=== PATIENT | male | born 1940 | race Caucasian/White ===

== ENCOUNTER → 2016-03-26 | Outpatient (CLI) | payer MEDICARE, BC ==
[~2016-03-26] MED LIST: ACYC400T PO; ASPI81TA2 PO; CHOL200027 PO; CLON1TAB3 PO; CYAN100031 PO; CYAN25008 PO; DONE5TAB7 PO; FLAX1CAP PO; GABA-586 PO; INSU100V8 SQ; LEVO50TA5 PO; LISI10TA2 PO; METF10002 PO; NAPR220C4 PO; SERT100T8 PO; SIMV40TA3 PO
[2016-03-26 09:28] LABS: ALBUMIN 3.5 g/dL (3.4-5.0); CALCIUM 8.9 mg/dL (8.5-10.1); CREATININE 1.3 mg/dL (0.7-1.3); GFR 53.8; POTASSIUM 4.9 mmol/L (3.5-5.1)
[2016-03-26 09:29] LABS: BASO % 1 % (0-3); EOS % 4 % (0-3); HEMATOCRIT 47.7 % (39.0-53.0); HEMOGLOBIN 15.9 g/dL (13.0-17.5); LYMPH # 1.4 x10^3/uL (1.0-4.8); LYMPH % 23 % (24-48); MEAN CORPUSCULAR HEMOGLOBIN 29 pg (25-35); MEAN CORPUSCULAR HGB CONC 33 g/dL (31-37); MEAN CORPUSCULAR VOLUME 87 fL (79-100); MONO % 8 % (0-9); NEUT % 64 % (31-73); PLATELET COUNT 146 x10^3/uL (140-400); RED BLOOD COUNT 5.48 x10^6/uL (4.30-5.70); RED CELL DISTRIBUTION WIDTH 14.7 % (11.5-14.5)
[2016-03-26 10:10] LABS: BILIRUBIN,URINE NEGATIVE (NEG); GLUCOSE,URINE NEGATIVE (NEG); NITRITE,URINE NEGATIVE (NEG); PH,URINE 5.5; PROTEIN,URINE NEGATIVE (NEG-TRACE); UROBILINOGEN,URINE 0.2 mg/dL (0.2 mg/dL)
[2016-03-26 10:56] LABS: BACTERIA,URINE 0 /HPF (0-FEW); RBC,URINE 0 /HPF (0-2); SQUAMOUS EPITHELIAL CELL,UR FEW /LPF; WBC,URINE OCC /HPF (0-4)
--- NOTE | 2016-03-26 12:34 | EKG ---
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
--- NOTE | 2016-03-26 12:59 | RAD ---
INDICATION: hx borderline hypertension-preop eval for joint replacement COMPARISON: None. FINDINGS: Single view of chest obtained. No focal airspace consolidation. Mediastinal contour is unremarkable. No gross osseous destructive lesion. IMPRESSION: No focal airspace consolidation or edema.
== END | disposition home or self-care (01) ==
LOC: EDUNIT# 08:00 → SURGPAT 12:26
PROVIDERS: ATTEND Orthopaedic Surgery Sports Medicine
DX: Z01.818 Encounter for other preprocedural examination (principal); M17.11 Unilateral primary osteoarthritis, right knee; Z96.651 Presence of right artificial knee joint
CPT/HCPCS: 36415; 71020; 80048; 81001; 82040; 83036; 85027; 85610; 85651; 85730; 87641; 93005

== ENCOUNTER 2016-04-09 06:09 | Inpatient (IN) | payer MEDICARE ==
[~2016-04-09] VITALS: Ht 180.3 cm; Wt 116.1 kg
[~2016-04-09 06:09] MED LIST changes: +CEFAZOLIN 2GM PREMIX 50 ML IV PRN; +HYDROCODONE/APAP 7.5/325MG TABLET. PO PRN; +MELOXICAM 7.5 MG TABLET PO PRN; +TRANEXAMIC ACID 1,000 MG in IV NS 50ML -- 1ST BAG INJ ONE
[2016-04-09] MEDS ORDERED: PROCHLORPERAZINE 10 MG/2 ML VIAL. IV PRN ×2 (07:00→07:30)
[2016-04-09] MEDS ORDERED: LIDOCAINE 1% 1 ML SYRINGE. ID PRN (07:00)
[2016-04-09] MEDS ORDERED: MORPHINE SULFATE 2 MG/ML DISP.SYRIN. IV PRN ×2 (07:00→07:30)
[2016-04-09] MEDS ORDERED: ONDANSETRON PF 4 MG/2 ML VIAL. IV PRN (07:00)
[2016-04-09] MEDS ORDERED: HYDROMORPHONE 2 MG/ML VIAL. IV PRN (07:00)
[2016-04-09] MEDS ORDERED: IV RINGERS,LACTATED 1000ML 1,000 ML IV SCH (07:00)
[2016-04-09] MEDS ORDERED: FENTANYL PF 100 MCG/2 ML VIAL. IV PRN ×4 (07:00→07:30)
[2016-04-09] MEDS ORDERED: LIDOCAINE 2% 100 MG/5 ML DISP.SYRIN. ONE (07:04)
[2016-04-09] MEDS ORDERED: ONDANSETRON PF 4 MG/2 ML VIAL. ONE (07:04)
[2016-04-09] MEDS ORDERED: DEXAMETHASONE SOD PHOS 20 MG/5 ML VIAL. ONE (07:04)
[2016-04-09] MEDS ORDERED: FAMOTIDINE 20 MG/2 ML VIAL ONE (07:04)
[2016-04-09] MEDS ORDERED: PROPOFOL 20 ML IV ONE ×2 (07:04→08:52)
[2016-04-09] MEDS ORDERED: ROCURONIUM 50 MG/5 ML VIAL. ONE (07:05)
[2016-04-09] MEDS ORDERED: FENTANYL PF 100 MCG/2 ML VIAL. ONE ×2 (07:05→08:28)
[2016-04-09 07:11] LABS: INR 1.1 (0.8-1.1); PROTHROMBIN TIME PATIENT 13.3 SEC (11.7-14.0)
[2016-04-09] MEDS ORDERED: IV DEXTROSE 5 %-0.45 % NACL 1,000 ML IV SCH (07:21)
--- NOTE | 2016-04-09 07:27 | PDOC ---
BRIEF OPERATIVE NOTE Date: Apr 09, 2016 Pre-Op Diagnosis R knee DJD Post-Op Diagnosis same Procedure Performed R TKA Surgeon Arie Banjo Repairer Liane Anesthesiologist [place]ap[place] Anesthesia Type: General Blood Loss 75mL Findings DJD Complications none TREASURE DOMINGO II, MD Apr 09, 2016 07:27
[2016-04-09] MEDS ORDERED: HYDROCODONE/APAP 10/325 TABLET. PO PRN (07:30)
[2016-04-09] MEDS ORDERED: 0.9 % SODIUM CHLORIDE 10 ML DISP.SYRIN. IV PRN (07:30)
[2016-04-09] MEDS ORDERED: ZOLPIDEM 5 MG TABLET. PO PRN (07:30)
[2016-04-09] MEDS ORDERED: MORPHINE SULFATE 10 MG/ML VIAL. IV PRN (07:30)
[2016-04-09] MEDS ORDERED: CALCIUM CARBONATE 500 MG TAB.CHEW PO PRN (07:30)
[2016-04-09] MEDS ORDERED: PROCHLORPERAZINE 5 MG TABLET. PO PRN (07:30)
[2016-04-09] MEDS ORDERED: OXYCODONE/APAP 5/325 TABLET. PO PRN (07:30)
[2016-04-09] MEDS ORDERED: MORPHINE SULFATE 4 MG/ML DISP.SYRIN. IV PRN ×2 (07:30)
[2016-04-09] MEDS ORDERED: METOCLOPRAMIDE HCL 10 MG/2 ML VIAL. IV PRN (07:30)
[2016-04-09] MEDS ORDERED: DEXTROSE 50% 25 GM / 50ML DISP.SYRIN. IV PRN ×2 (07:30)
[2016-04-09] MEDS ORDERED: ACETAMINOPHEN 325 MG TABLET. PO PRN (07:30)
[2016-04-09] MEDS ORDERED: TRAMADOL 50 MG TABLET. PO PRN ×2 (07:30)
[2016-04-09] MEDS ORDERED: DIPHENHYDRAMINE 50 MG/ML VIAL IV PRN (07:30)
[2016-04-09] MEDS ORDERED: EPHEDRINE PF IN SALINE 50 MG/5 ML DISP.SYRIN. IV ONE (07:46)
[2016-04-09] MEDS ORDERED: TOBRAMYCIN POWDER 1.2 GM VIAL. ONE (07:59)
[2016-04-09] MEDS ORDERED: INSULIN ASPART 300 UNITS/3 ML INSULN.PEN SQ SCH (08:00)
[2016-04-09] MEDS ORDERED: MORPHINE SULFATE 5 MG, KETOROLAC TROMETHAMINE 30 MG, ROPIVacaine 0.5% PF 60 ML, EPINEPH... INT ART ONE ×5 (08:00)
[2016-04-09] MEDS ORDERED: TRANEXAMIC ACID 1,000 MG in IV NS 50ML -- 2ND BAG INJ ONE (08:00)
[2016-04-09] MEDS ORDERED: VANCOMYCIN 1 GM VIAL. ONE (08:00)
[2016-04-09] MEDS: MULTIVITAMIN with MINERAL TABLET. PO SCH (09:00)
[2016-04-09] MEDS ORDERED: GLYCOPYRROLATE 1 MG/5 ML VIAL. ONE (09:05)
[2016-04-09] MEDS ORDERED: NEOSTIGMINE METHYLSULFATE 5 MG/5 ML SYRINGE. ONE (09:06)
[2016-04-09] MEDS ORDERED: DESFLURANE 61 TO 120 MINUTES IH ONE (09:08)
[2016-04-09] MEDS ORDERED: DESFLURANE > 120 MINUTES IH ONE (09:38)
--- NOTE | 2016-04-09 10:34 | RAD ---
Right knee, 2 views, 04/09/2016: History: Postop evaluation A total knee prosthesis is in place in satisfactory position. There is no evidence of a retained surgical instrument, needle or radiopaque sponge on these 2 views.
[2016-04-09 11:15] VITALS: BP 127/77
[2016-04-09] MEDS: LISINOPRIL 10 MG TABLET PO SCH (12:00)
[2016-04-09 12:12] VITALS: BP 131/81
[2016-04-09 12:45] VITALS: BP 132/84
[2016-04-09] MEDS: INSULIN ASPART 300 UNITS/3 ML INSULN.PEN SQ SCH ×2 (13:25→16:50)
[2016-04-09] MEDS: CEFAZOLIN 2GM PREMIX 50 ML IV SCH ×2 (13:32→20:58)
[2016-04-09] MEDS: IV RINGERS,LACTATED 1000ML 1,000 ML IV SCH ×2 (13:32→22:30)
[2016-04-09 13:45] VITALS: BP 109/63
[2016-04-09] MEDS ORDERED: ACYCLOVIR 200 MG CAPSULE PO PRN (14:00)
--- NOTE | 2016-04-09 14:10 | OP ---
DATE OF SURGERY: 04/09/2016 SURGEON: Raul Domingo MD CULVERT INSTALLER: Courtney Rob ANESTHESIA: General. PREOPERATIVE DIAGNOSIS: Advanced right knee degenerative joint disease. POSTOPERATIVE DIAGNOSIS: Advanced right knee degenerative joint disease. PROCEDURE PERFORMED: Right total knee arthroplasty. COMPONENTS INSERTED: 1. Crockett and Nephew Oxinium size 6 femoral component. 2. Size 5 tibial component. 3. A 9-mm thick polyethylene articular insert. 4. A 26-mm biconvex patella. TOURNIQUET TIME: 64 minutes. ESTIMATED BLOOD LOSS: 75 mL. FINDINGS: Advanced degenerative joint disease, most notable at the medial compartment. COMPLICATIONS: None. REASON FOR PROCEDURE: The patient is a very pleasant 75-year-old gentleman with severe and progressive medial-sided as well as anterior right knee pain that failed conservative therapy such as assistive devices, anti-inflammatories, and intra-articular injections. His pain progressed despite all of these measures, and we had discussion of risks, benefits, and alternatives of the above surgery, and he elected to proceed. DESCRIPTION OF PROCEDURE: The patient was greeted in the preoperative area by myself. Correct extremity was marked and verified. He was taken to the operative suite, and antibiotics were started en route. Once in the OR, he was transferred gently supine to the OR table and made successful induction of general anesthesia. We then secured him to the bed. All pressure points were padded. We then had a nonsterile tourniquet taped in place to his right thigh. We then proceeded to prep and drape lower extremity in usual sterile fashion including an Ioban sandwich. I then affixed the Neal leg bhatt. After this, the extremity was exsanguinated with an Esmarch and tourniquet insufflated to 300 mmHg. I then palpated, marked surface anatomy and made an anterior midline skin incision, dissected subcutaneous tissue with electrocautery and cauterized bleeders as they were encountered. I identified his extensor mechanism including quadriceps tendon, medial border of his patella, and patellar tendon and made my standard medial parapatellar arthrotomy. I then bluntly dissected the fat pad off the posterior aspect of the patellar tendon, which was protected with an Army-Owings retractor, and then I excised the fat pad. I released horns of the meniscus. I then flexed the knee up and excised the cruciate ligaments. I then pinned into place my Visionaire distal femoral cutting block and then made my distal femoral cut. I delivered the bony ends and cutting block and then reapplied the distal femoral 5-in-1 cutting block and made those cuts. The bony ends were then delivered with a curved osteotome. I then released the PCL and posterior horns of the menisci. I placed my Z retractors to protect the collaterals as well as pickle fork. I then used an extramedullary tibial cutting guide and pinned this into place and made my proximal tibial cut and delivered this bony remnants from the operative field with circumferential electrocautery. I then brought the knee out into extension and used my spacer block and drop misha, which confirmed good alignment. I then repositioned the retractors and the knee in flexion and pinned in place my tibial component referencing the medial third of the tibial tubercle. I then drilled and punched for my baseplate fins. After this, I then placed my femoral trial component and then reamed and punched for the KM component. After this, I then trialed my polyethylene sizes and felt the 9 gave the best range of motion, 0 degrees to 135 degrees. Knee was stable in extension and mid flexion. After this, I sized for my patellar component. The 29 was a little bit too big, so I downsized it to 26 and reamed for this. I then trialed my patella and had great patellar tracking. I was happy with the range of motion and stability. I then removed all trial components and thoroughly irrigated all bony surfaces. I then proceeded to cement in place, the tibial component followed by the femoral component. A trial articular insert was then in place with the leg in extension while the cement polymerized. It should be noted that the antibiotics were included in the cement. I then held my patellar button in place with cement and the clamp. I then took care to make sure I removed all cement. I then injected my periarticular mixture and into the erica-incisional and pericapsular soft tissues. After cement hardened, I tested range of motion and stability and was happy and then took out the trial polyethylene insert and irrigated the knee out again and placed my 9-mm thick polyethylene permanent insert. We then let the tourniquet down and cauterized a couple of bleeders, where the operative field was fairly dry and elected not to place a drain. I then closed the arthrotomy with simple interrupted #1 Vicryl with the exception [id number] proximally. I tested the arthrotomy flexion, and it was watertight closure. Inverted interrupted 2-0 in a multilayered fashion followed by running 4-0 Monocryl in a subcuticular fashion was used for skin. Prior to accomplishing wound closure, all counts were reported correct x 2. No complications. At the conclusion of surgery, the patient was awakened from anesthesia. After a sterile dressing was applied followed by cast padding and an Onofre wrap to his right lower extremity. He tolerated surgery well. Postop plan is to [facility] for [facility] and antibiotic prophylaxis. He will also receive IV pain medicine and begin his rehabilitation. RAUL DOMINGO MD DR: DIVINA/vianca JOB#: [id number] / [id number] KEVIN
[2016-04-09 14:45] VITALS: BP 104/70
[2016-04-09] MEDS ORDERED: WARFARIN 7.5 MG TABLET. PO ONE (16:00)
[2016-04-09] MEDS: SENNOSIDES/DOCUSATE 8.6/50MG TABLET. PO SCH (16:44)
[2016-04-09] MEDS: METFORMIN 1,000 MG TABLET PO SCH (16:44)
[2016-04-09] MEDS: FERROUS SULFATE 325 MG TABLET PO SCH (16:44)
[2016-04-09] MEDS: HYDROCODONE/APAP 7.5/325MG TABLET. PO PRN (16:45)
[2016-04-09] MEDS: SIMVASTATIN 40 MG TABLET. PO SCH (21:04)
[2016-04-09] MEDS: DONEPEZIL HCL 5 MG TABLET. PO SCH (21:04)
[2016-04-09] MEDS: GABAPENTIN 300 MG CAPSULE. PO SCH (21:04)
[2016-04-09] MEDS: CELECOXIB 200 MG CAPSULE PO SCH (21:04)
[2016-04-09] MEDS: INSULIN DETEMIR 300 UNITS/3 ML INSULN.PEN. SQ SCH (21:13)
[2016-04-09 23:00] VITALS: BP 105/63
[2016-04-10] MEDS: CEFAZOLIN 2GM PREMIX 50 ML IV SCH (02:00)
[2016-04-10 03:30] VITALS: BP 107/63
[2016-04-10 05:08] LABS: INR 1.2 (0.8-1.1); PROTHROMBIN TIME PATIENT 14.6 SEC (11.7-14.0)
[2016-04-10] MEDS ORDERED: MAGNESIUM HYDROXIDE 2,400 MG/30 ML ORAL.SUSP. PO PRN (06:00)
[2016-04-10 07:25] VITALS: BP 124/62
[2016-04-10] MEDS: LEVOTHYROXINE 50 MCG TABLET PO SCH (07:31)
[2016-04-10] MEDS: CELECOXIB 200 MG CAPSULE PO SCH ×2 (08:08→20:02)
[2016-04-10] MEDS: FERROUS SULFATE 325 MG TABLET PO SCH ×2 (08:08→16:57)
[2016-04-10] MEDS: SENNOSIDES/DOCUSATE 8.6/50MG TABLET. PO SCH (08:08)
[2016-04-10] MEDS: MULTIVITAMIN with MINERAL TABLET. PO SCH (08:08)
[2016-04-10] MEDS: METFORMIN 1,000 MG TABLET PO SCH ×2 (08:08→16:57)
[2016-04-10] MEDS: HYDROCODONE/APAP 7.5/325MG TABLET. PO PRN (08:11)
[2016-04-10] MEDS: INSULIN ASPART 300 UNITS/3 ML INSULN.PEN SQ SCH ×3 (08:14→17:02)
--- NOTE | 2016-04-10 08:24 | PDOC ---
ORTHO PROGRESS NOTES Subjective Pain tolerable, no CP, SOB. Vitals Vital Signs Date Time Temp Pulse Resp B/P Pulse Ox O2 Delivery O2 Flow Rate FiO2 04/10/16 08:11 Room Air 04/10/16 07:25 98.0 70 16 124/62 94 98.0 04/10/16 03:30 2.0 Labs Laboratory Tests Test 04/09/16 06:15 04/09/16 06:45 04/09/16 10:04 04/09/16 13:23 Prothrombin Time 13.3SEC (11.7-14.0) Prothromb Time International Ratio 1.1 (0.8-1.1) Activated Partial Thromboplast Time 26SEC (24-38) Glucose (Fingerstick) 148mg/dL (70-99) 233mg/dL (70-99) 270mg/dL (70-99) Test 04/09/16 16:24 04/09/16 21:09 04/10/16 04:50 04/10/16 07:13 Glucose (Fingerstick) 225mg/dL (70-99) 207mg/dL (70-99) 157mg/dL (70-99) Prothrombin Time 14.6SEC (11.7-14.0) Prothromb Time International Ratio 1.2 (0.8-1.1) Laboratory Tests Test 04/09/16 10:04 04/09/16 13:23 04/09/16 16:24 04/09/16 21:09 Glucose (Fingerstick) 233mg/dL (70-99) 270mg/dL (70-99) 225mg/dL (70-99) 207mg/dL (70-99) Test 04/10/16 04:50 04/10/16 07:13 Prothrombin Time 14.6SEC (11.7-14.0) Prothromb Time International Ratio 1.2 (0.8-1.1) Glucose (Fingerstick) 157mg/dL (70-99) Notes A and A in chair dressing intact SITLT RLE, wiggles toes, toes warm Assessment and Plan PT/OT TREASURE DOMINGO II, MD Apr 10, 2016 08:24
[2016-04-10] MEDS: IV RINGERS,LACTATED 1000ML 1,000 ML IV SCH ×2 (08:30→18:30)
[2016-04-10 10:27] LABS: HEMATOCRIT 40.1 % (39.0-53.0); HEMOGLOBIN 13.3 g/dL (13.0-17.5)
[2016-04-10 11:29] VITALS: BP 125/73
[2016-04-10] MEDS: SERTRALINE 50 MG TABLET. PO SCH ×2 (11:48→20:01)
[2016-04-10] MEDS: OXYCODONE/APAP 7.5/325 TABLET. PO PRN ×3 (11:49→20:01)
[2016-04-10] MEDS: LISINOPRIL 10 MG TABLET PO SCH (12:52)
[2016-04-10] MEDS ORDERED: BISACODYL 10 MG SUPP.RECT PR PRN (16:00)
[2016-04-10 18:06] VITALS: BP 145/77
[2016-04-10] MEDS: GABAPENTIN 300 MG CAPSULE. PO SCH (20:01)
[2016-04-10] MEDS: CLONAZEPAM 1 MG TABLET PO SCH (20:02)
[2016-04-10] MEDS: DONEPEZIL HCL 5 MG TABLET. PO SCH (20:02)
[2016-04-10] MEDS: SIMVASTATIN 40 MG TABLET. PO SCH (20:02)
[2016-04-10] MEDS: INSULIN DETEMIR 300 UNITS/3 ML INSULN.PEN. SQ SCH (21:28)
[2016-04-11] MEDS: OXYCODONE/APAP 7.5/325 TABLET. PO PRN ×6 (00:26→19:17)
[2016-04-11 05:53] LABS: INR 1.3 (0.8-1.1); PROTHROMBIN TIME PATIENT 15.1 SEC (11.7-14.0)
[2016-04-11 06:13] VITALS: BP 122/76
[2016-04-11] MEDS: LEVOTHYROXINE 50 MCG TABLET PO SCH (06:22)
[2016-04-11 06:52] LABS: HEMATOCRIT 45.1 % (39.0-53.0); HEMOGLOBIN 14.8 g/dL (13.0-17.5)
[2016-04-11] MEDS: MULTIVITAMIN with MINERAL TABLET. PO SCH (08:35)
[2016-04-11] MEDS: CELECOXIB 200 MG CAPSULE PO SCH ×2 (08:35→20:40)
[2016-04-11] MEDS: FERROUS SULFATE 325 MG TABLET PO SCH ×2 (08:35→16:17)
[2016-04-11] MEDS: SENNOSIDES/DOCUSATE 8.6/50MG TABLET. PO SCH (08:35)
[2016-04-11] MEDS: LISINOPRIL 10 MG TABLET PO SCH (08:36)
[2016-04-11] MEDS: METFORMIN 1,000 MG TABLET PO SCH ×2 (08:36→16:18)
[2016-04-11] MEDS: SERTRALINE 50 MG TABLET. PO SCH ×2 (08:36→20:40)
[2016-04-11] MEDS: INSULIN ASPART 300 UNITS/3 ML INSULN.PEN SQ SCH ×3 (08:41→16:23)
--- NOTE | 2016-04-11 10:52 | PDOC ---
EDUARDOKAYYVAN J TRACER LATHE SET UP OPERATOR 04/11/16 1052: ORTHO PROGRESS NOTES Subjective Patient complains of pain, but pain moderately controlled with pain medication. No CP/SOB. progressing with therapy. no concerns presently Post-op Day: 2 (Right TKA) Vitals Vital Signs Date Time Temp Pulse Resp B/P Pulse Ox O2 Delivery O2 Flow Rate FiO2 04/11/16 09:41 18 93 Room Air 04/11/16 08:36 76 122/76 04/11/16 06:13 98.1 98.1 Labs Laboratory Tests Test 04/09/16 13:23 04/09/16 16:24 04/09/16 21:09 04/10/16 04:50 Glucose (Fingerstick) 270mg/dL (70-99) 225mg/dL (70-99) 207mg/dL (70-99) Hemoglobin 13.3g/dL (13.0-17.5) Hematocrit 40.1% (39.0-53.0) Mean Corpuscular Hemoglobin Concent 33g/dL (31-37) Prothrombin Time 14.6SEC (11.7-14.0) Prothromb Time International Ratio 1.2 (0.8-1.1) Test 04/10/16 07:13 04/10/16 11:35 04/10/16 16:53 04/10/16 20:32 Glucose (Fingerstick) 157mg/dL (70-99) 134mg/dL (70-99) 167mg/dL (70-99) 215mg/dL (70-99) Test 04/11/16 04:24 04/11/16 06:51 Hemoglobin 14.8g/dL (13.0-17.5) Hematocrit 45.1% (39.0-53.0) Mean Corpuscular Hemoglobin Concent 33g/dL (31-37) Prothrombin Time 15.1SEC (11.7-14.0) Prothromb Time International Ratio 1.3 (0.8-1.1) Glucose (Fingerstick) 172mg/dL (70-99) Laboratory Tests Test 04/10/16 11:35 04/10/16 16:53 04/10/16 20:32 04/11/16 04:24 Glucose (Fingerstick) 134mg/dL (70-99) 167mg/dL (70-99) 215mg/dL (70-99) Hemoglobin 14.8g/dL (13.0-17.5) Hematocrit 45.1% (39.0-53.0) Mean Corpuscular Hemoglobin Concent 33g/dL (31-37) Prothrombin Time 15.1SEC (11.7-14.0) Prothromb Time International Ratio 1.3 (0.8-1.1) Test 04/11/16 06:51 Glucose (Fingerstick) 172mg/dL (70-99) Notes Patient is awake and alert. Breathing unlabored, no acute distress. Incision covered with dressing, dressing is intact. Moderate edema. Neurovascular intact right lower extremity. Problems: (1) Right knee DJD Assessment and Plan Continue PT/OT weightbearing as tolerated. Anticoagulation per pharmacy Anticipate discharge tomorrow Pain controlled TREASURE DOMINGO II, MD 04/11/16 1256: Problem Qualifiers (1) Right knee DJD: Osteoarthritis type: primary Qualified Code: M17.11 - Unilateral primary osteoarthritis, right knee YVAN JAVIER APRN Apr 11, 2016 10:52 TREASURE DOMINGO II, MD Apr 11, 2016 12:56
--- NOTE | 2016-04-11 14:12 | PATHOLOGY ---
PATHOLOGY REPORT * * * * * * * * FINAL DIAGNOSIS: Segments of bone, right total knee arthroplasty: - Advanced degenerative arthritis. (JPM:csd; d/t: 04/11/2016) REPORT ELECTRONICALLY SIGNED BY: Bernard Wood M.D. DATE/TIME: 04/11/2016 14:11 * * * * * * * * GROSS PATHOLOGY: Received in formalin labeled "Luis Daniel Nguyen, right knee tissue," are multiple segments of bone, including tibial plateau, measuring 9.7 x 8.2 x 2.5 cm in aggregate dimensions with no grossly appreciable soft tissue; meniscus is not present. The specimen shows focal eburnation of the articular surfaces. Auto Crane Driver sections of bone and soft tissue are submitted in cassette A1, following decalcification. (CAA; 04/10/2016) INITIAL CPT CODE(S): A; 03944, 45128 Professional services [place] [facility] [place] [address] Technical services performed by [facility] at [address] [place] [address]. SPECIMEN(S) RECEIVED: A.Right knee tissue CLINICAL HISTORY: Right knee OA PATIENT: LUIS DANIEL NGUYEN /AGE: 5 1940 (Age: 75) PATIENT #: [id number] ALT CASE #: SPECIMEN COLLECTION DATE: 04/09/2016 SPECIMEN RECEIVED DATE: 04/09/2016 [facility] - [address] [place] [address] - PHONE: [phone] * * * END OF REPORT * * *
[2016-04-11] MEDS ORDERED: WARFARIN 7.5 MG TABLET. PO ONE (16:00)
[2016-04-11] MEDS ORDERED: WARFARIN 5 MG TABLET. PO ONE (16:00)
[2016-04-11] MEDS: DONEPEZIL HCL 5 MG TABLET. PO SCH (20:40)
[2016-04-11] MEDS: GABAPENTIN 300 MG CAPSULE. PO SCH (20:40)
[2016-04-11] MEDS: SIMVASTATIN 40 MG TABLET. PO SCH (20:40)
[2016-04-11] MEDS: CLONAZEPAM 1 MG TABLET PO SCH (20:40)
[2016-04-11] MEDS: INSULIN DETEMIR 300 UNITS/3 ML INSULN.PEN. SQ SCH (20:46)
[2016-04-12] MEDS: OXYCODONE/APAP 7.5/325 TABLET. PO PRN ×4 (01:47→15:14)
[2016-04-12 05:13] LABS: HEMATOCRIT 38.1 % (39.0-53.0)
[2016-04-12 05:22] LABS: INR 1.3 (0.8-1.1); PROTHROMBIN TIME PATIENT 15.1 SEC (11.7-14.0)
[2016-04-12 06:16] VITALS: BP 113/71
--- NOTE | 2016-04-12 07:54 | PDOC ---
ORTHO PROGRESS NOTES Subjective R knee pain doing ok. c/o worse productive cough, has had some breathing issues for a couple months, but worse after surgery Vitals Vital Signs Date Time Temp Pulse Resp B/P Pulse Ox O2 Delivery O2 Flow Rate FiO2 04/12/16 06:16 97.4 67 20 113/71 91 Room Air 97.4 Labs Laboratory Tests Test 04/10/16 11:35 04/10/16 16:53 04/10/16 20:32 04/11/16 04:24 Glucose (Fingerstick) 134mg/dL (70-99) 167mg/dL (70-99) 215mg/dL (70-99) Hemoglobin 14.8g/dL (13.0-17.5) Hematocrit 45.1% (39.0-53.0) Mean Corpuscular Hemoglobin Concent 33g/dL (31-37) Prothrombin Time 15.1SEC (11.7-14.0) Prothromb Time International Ratio 1.3 (0.8-1.1) Test 04/11/16 06:51 04/11/16 11:22 04/11/16 16:16 04/11/16 20:38 Glucose (Fingerstick) 172mg/dL (70-99) 169mg/dL (70-99) 160mg/dL (70-99) 167mg/dL (70-99) Test 04/12/16 05:00 04/12/16 06:56 Hemoglobin 13.0g/dL (13.0-17.5) Hematocrit 38.1% (39.0-53.0) Mean Corpuscular Hemoglobin Concent 34g/dL (31-37) Prothrombin Time 15.1SEC (11.7-14.0) Prothromb Time International Ratio 1.3 (0.8-1.1) Glucose (Fingerstick) 176mg/dL (70-99) Laboratory Tests Test 04/11/16 11:22 04/11/16 16:16 04/11/16 20:38 04/12/16 05:00 Glucose (Fingerstick) 169mg/dL (70-99) 160mg/dL (70-99) 167mg/dL (70-99) Hemoglobin 13.0g/dL (13.0-17.5) Hematocrit 38.1% (39.0-53.0) Mean Corpuscular Hemoglobin Concent 34g/dL (31-37) Prothrombin Time 15.1SEC (11.7-14.0) Prothromb Time International Ratio 1.3 (0.8-1.1) Test 04/12/16 06:56 Glucose (Fingerstick) 176mg/dL (70-99) Notes A and A RLE: nickel sized blister over medial soft tissues small amount drainage from inferior incision remains NVI Assessment and Plan gentle compressive dressing to RLE will ask Hospitalist service to eval patient possibly home later today vs tomorrow CXR TREASURE DOMINGO II, MD Apr 12, 2016 07:54
[2016-04-12] MEDS: METFORMIN 1,000 MG TABLET PO SCH (08:00)
[2016-04-12] MEDS: MULTIVITAMIN with MINERAL TABLET. PO SCH (08:05)
[2016-04-12] MEDS: FERROUS SULFATE 325 MG TABLET PO SCH (08:05)
[2016-04-12] MEDS: SENNOSIDES/DOCUSATE 8.6/50MG TABLET. PO SCH (08:05)
[2016-04-12] MEDS: SERTRALINE 50 MG TABLET. PO SCH (08:05)
[2016-04-12] MEDS: LEVOTHYROXINE 50 MCG TABLET PO SCH (08:05)
[2016-04-12] MEDS: CELECOXIB 200 MG CAPSULE PO SCH (08:06)
[2016-04-12] MEDS: LISINOPRIL 10 MG TABLET PO SCH (08:07)
[2016-04-12] MEDS: INSULIN ASPART 300 UNITS/3 ML INSULN.PEN SQ SCH ×2 (08:13→11:36)
--- NOTE | 2016-04-12 08:44 | RAD ---
Exam performed: 2 views of the chest. Indication: productive cough Date of Service:04/12/2016 9:54 AM . Comparison : 03/26/16. Findings: PA and lateral radiographs of the chest reveal a normal cardiomediastinal contour. The lungs are clear. No pleural fluid is seen. The visualized osseous structures are unremarkable. Impression: Radiographically normal chest.
--- NOTE | 2016-04-12 13:07 | CONS ---
DATE OF CONSULTATION: 04/12/2016 CHIEF COMPLAINT: Postop left knee, request for medical evaluation and treatment of comorbidities. HISTORY OF PRESENT ILLNESS: The patient is a pleasant elderly male who underwent a left knee replacement yesterday. We have been requested for postop medical evaluation and treatment of comorbidities. PAST MEDICAL HISTORY: Anxiety, anemia, degenerative joint disease, neuropathy, diabetes, hypertension, hyperlipidemia and depression. ALLERGIES: None. FAMILY HISTORY: Diabetes. SOCIAL HISTORY: Does not drink, smoke or take drugs. He is retired. MEDICATIONS: Reviewed, please refer to the MRAD. He is on aspirin, vitamin D, B12, donepezil, flaxseed, gabapentin, insulin, Synthroid, metformin, lisinopril, ____, sertraline and simvastatin. REVIEW OF SYSTEMS: GENERAL: No history of weight change, weakness or fevers. SKIN: No bruising, hair changes or rashes. EYES: No blurred, double or loss of vision. NOSE AND THROAT: No history of nosebleeds, hoarseness or sore throat. HEART: No history of palpitations, chest pain or shortness of breath on exertion. LUNGS: He complains of cough. GASTROINTESTINAL: Denies changes in appetite, nausea, vomiting, diarrhea or constipation. GENITOURINARY: No history of frequency, urgency, hesitancy or nocturia. NEUROLOGIC: Denies history of numbness, tingling, tremor or weakness. PSYCHIATRIC: No history of panic, anxiety or depression. ENDOCRINE: No history of heat or cold intolerance, polyuria or polydipsia. EXTREMITIES: Denies muscle weakness, joint pain, pain on walking or stiffness. MUSCULOSKELETAL: He ____ of knee pain. PHYSICAL EXAMINATION: VITAL SIGNS: Temperature afebrile, pulse 97, respirations 18, blood pressure 113/71. GENERAL: He is alert, cooperative, a little anxious. HEART: Normal S1, S2. LUNGS: Clear. ABDOMEN: Soft, positive bowel sounds. EXTREMITIES: The left knee has clean bandaging. ENDOCRINE: No thyromegaly. LYMPHATICS: No cervical nodes. HEMATOPOIETIC: No bruising. LABORATORY DATA: Hemoglobin today is 13. Electrolytes pending. INR 1.3. ASSESSMENT AND PLAN: Postop left knee replacement in an elderly male with the above noted comorbidities. We will continue home medicines. We will recheck his labs tomorrow, wound care, PT, OT, probable [facility] unit transfer in a couple of days. Thank you very much for allowing us to participate in the care of this nice gentleman. BRADLEY MATUTE DO DR: VANESSA/vianca JOB#: [id number] / [id number] TREASURE Guerin MD
[2016-04-12] MEDS ORDERED: WARFARIN 6 MG TABLET. PO ONE (14:00)
[2016-04-12] MEDS ORDERED: OXYC-244 PO (14:47)
[2016-04-12 14:48] VITALS: BP 129/68
[2016-04-12] MEDS ORDERED: PROAIR HFA8.5 GM INH (14:52)
== END 2016-04-12 15:40 | disposition home or self-care (01) | DRG 470 ==
LOC: OPSVCIP 06:09 → EDUNIT# 07:30 → 4 SOUTHEST 11:15
PROVIDERS: ADMIT Orthopaedic Surgery Sports Medicine; ATTEND Orthopaedic Surgery Sports Medicine
PROC: 0SRC0J9 Replacement of Right Knee Joint with Synthetic Substitute, Cemented, Open Approach (ICD-10-PCS; principal; 2016-04-09 07:30)
DX: M17.11 Unilateral primary osteoarthritis, right knee (principal); I10 Essential (primary) hypertension; E11.40 Type 2 diabetes mellitus with diabetic neuropathy, unspecified; E78.5 Hyperlipidemia, unspecified; Z96.652 Presence of left artificial knee joint; Z83.3 Family history of diabetes mellitus; Z79.4 Long term (current) use of insulin
CPT/HCPCS: 36415; 71020; 73560; 82947; 85014; 85018; 85610; 85730; 86850; 86900; 86901; 88305; 88311; J0171; J0690; J1100; J1815; J1885; J2270; J2405; J2704; J2710; J2795; J3010; J3260; J3370; J3490; J7030; J7120; S0028; 97110; 97116; 97150; 97530; 97535; C1769

== ENCOUNTER 2016-04-23 07:23 | Inpatient (IN) | payer MEDICARE, BC ==
[~2016-04-23] VITALS: Ht 180.3 cm; Wt 113.9 kg
[2016-04-23] VITALS (11 sets, daily range): BP systolic 122–157; BP diastolic 60–87
[~2016-04-23 07:23] MED LIST changes: +ACETAMINOPHEN 500 MG TABLET PO PRN; -CEFAZOLIN 2GM PREMIX 50 ML IV PRN; +FENTANYL PF 100 MCG/2 ML VIAL. IV PRN; +HYDROMORPHONE 2 MG/ML VIAL. IV PRN; +IV RINGERS,LACTATED 1000ML 1,000 ML IV SCH; +LIDOCAINE 1% 1 ML SYRINGE. ID PRN; -MELOXICAM 7.5 MG TABLET PO PRN; +MORPHINE SULFATE 2 MG/ML DISP.SYRIN. IV PRN; +MORPHINE SULFATE 5 MG, KETOROLAC TROMETHAMINE 30 MG, ROPIVacaine 0.5% PF 60 ML, EPINEPH... INT ART ONE; +ONDANSETRON PF 4 MG/2 ML VIAL. IV PRN; +OXYC-244 PO; +PROAIR HFA8.5 GM INH; +PROCHLORPERAZINE 10 MG/2 ML VIAL. IV PRN; +WARF6TAB PO
[2016-04-23] MEDS ORDERED: HYDROCODONE/APAP 10/325 TABLET. PO PRN (07:30)
[2016-04-23] MEDS ORDERED: HYDROCODONE/APAP 7.5/325MG TABLET. PO PRN (07:30)
[2016-04-23] MEDS ORDERED: DIPHENHYDRAMINE 50 MG/ML VIAL IV PRN (07:30)
[2016-04-23] MEDS ORDERED: CALCIUM CARBONATE 500 MG TAB.CHEW PO PRN (07:30)
[2016-04-23] MEDS ORDERED: ZOLPIDEM 5 MG TABLET. PO PRN (07:30)
[2016-04-23] MEDS ORDERED: TRAMADOL 50 MG TABLET. PO PRN ×2 (07:30)
[2016-04-23] MEDS ORDERED: MORPHINE SULFATE 2 MG/ML DISP.SYRIN. IV PRN (07:30)
[2016-04-23] MEDS ORDERED: MORPHINE SULFATE 10 MG/ML VIAL. IV PRN (07:30)
[2016-04-23] MEDS ORDERED: 0.9 % SODIUM CHLORIDE 10 ML DISP.SYRIN. IV PRN (07:30)
[2016-04-23] MEDS ORDERED: FENTANYL PF 100 MCG/2 ML VIAL. IV PRN ×2 (07:30)
[2016-04-23] MEDS: IV DEXTROSE 5 %-0.45 % NACL 1,000 ML IV SCH ×2 (07:30→17:30)
[2016-04-23] MEDS ORDERED: PROCHLORPERAZINE 5 MG TABLET. PO PRN (07:30)
[2016-04-23] MEDS ORDERED: PROCHLORPERAZINE 10 MG/2 ML VIAL. IV PRN (07:30)
[2016-04-23] MEDS ORDERED: MORPHINE SULFATE 4 MG/ML DISP.SYRIN. IV PRN ×2 (07:30)
[2016-04-23] MEDS ORDERED: ACETAMINOPHEN 325 MG TABLET. PO PRN (07:30)
[2016-04-23] MEDS ORDERED: OXYCODONE/APAP 5/325 TABLET. PO PRN (07:30)
[2016-04-23] MEDS ORDERED: DEXTROSE 50% 25 GM / 50ML DISP.SYRIN. IV PRN ×2 (07:30→13:45)
[2016-04-23] MEDS ORDERED: VANCOMYCIN 1 GM in IV NORMAL SALINE 250ML 250 ML IV ONE ×2 (07:45→21:00)
[2016-04-23] MEDS ORDERED: TRANEXAMIC ACID 1,000 MG in IV NS 50ML -- 2ND BAG INJ ONE (08:00)
[2016-04-23] MEDS ORDERED: ROCURONIUM 50 MG/5 ML VIAL. ONE ×2 (08:01)
[2016-04-23] MEDS ORDERED: FAMOTIDINE 20 MG/2 ML VIAL ONE (08:02)
[2016-04-23] MEDS ORDERED: PROPOFOL 20 ML IV ONE ×2 (08:02→10:56)
[2016-04-23] MEDS ORDERED: ONDANSETRON PF 4 MG/2 ML VIAL. ONE (08:02)
[2016-04-23] MEDS ORDERED: LIDOCAINE 2% 100 MG/5 ML DISP.SYRIN. ONE (08:02)
[2016-04-23] MEDS: IV RINGERS,LACTATED 1000ML 1,000 ML IV SCH ×2 (08:17→21:51)
--- NOTE | 2016-04-23 08:20 | PDOC ---
BRIEF OPERATIVE NOTE Date: Apr 23, 2016 Pre-Op Diagnosis R TKA drainage Post-Op Diagnosis same Procedure Performed I and D, poly exchange, R TKA Surgeon Arie Anesthesiologist Teo Anesthesia Type: General Blood Loss 50mL Specimens Obtained knee aspirate, superficial and deep cultures Findings subq fluid collection, arthrotomy open proximal to patella; no gross purulence Complications none TREASURE DOMINGO II, MD Apr 23, 2016 08:20
[2016-04-23 08:35] LABS: BASO % 1 % (0-3); EOS % 3 % (0-3); HEMOGLOBIN 14.4 g/dL (13.0-17.5); LYMPH # 1.6 x10^3/uL (1.0-4.8); LYMPH % 20 % (24-48); MEAN CORPUSCULAR HEMOGLOBIN 29 pg (25-35); MEAN CORPUSCULAR HGB CONC 33 g/dL (31-37); MEAN CORPUSCULAR VOLUME 90 fL (79-100); MONO % 7 % (0-9); NEUT % 70 % (31-73); PLATELET COUNT 251 x10^3/uL (140-400); RED BLOOD COUNT 4.92 x10^6/uL (4.30-5.70); RED CELL DISTRIBUTION WIDTH 14.9 % (11.5-14.5); WHITE BLOOD COUNT 8.2 x10^3/uL (4.0-11.0)
[2016-04-23] MEDS ORDERED: VANCOMYCIN 1 GM VIAL. ONE (09:08)
[2016-04-23 09:23] LABS: INR 1.1 (0.8-1.1); PROTHROMBIN TIME PATIENT 13.5 SEC (11.7-14.0)
[2016-04-23] MEDS ORDERED: GLYCOPYRROLATE 1 MG/5 ML VIAL. ONE (09:41)
[2016-04-23] MEDS ORDERED: NEOSTIGMINE METHYLSULFATE 5 MG/5 ML SYRINGE. ONE (09:41)
[2016-04-23] MEDS ORDERED: SEVOFLURANE 61 TO 120 MINUTES. IH ONE ×2 (09:55→11:03)
[2016-04-23] MEDS ORDERED: SEVOFLURANE > 120 MINUTES. IH ONE (11:03)
[2016-04-23] MEDS ORDERED: INSULIN ASPART 100 UNIT/ML 10ML VIAL. SQ PRN (11:30)
[2016-04-23] MEDS: FENTANYL PF 100 MCG/2 ML VIAL. IV PRN ×4 (11:41→12:05)
[2016-04-23] MEDS ORDERED: CEFAZOLIN 2GM PREMIX 50 ML IV PRN (12:15)
--- NOTE | 2016-04-23 12:15 | OP ---
DATE OF SURGERY: 04/23/2016 SURGEON: Raul Domingo MD CRIMINAL RESEARCHER: Yaya. ANESTHESIA: General. PREOPERATIVE DIAGNOSIS: Right total knee arthroplasty drainage. POSTOPERATIVE DIAGNOSIS: Right total knee arthroplasty drainage. PROCEDURES PERFORMED: 1. Irrigation and debridement of right total knee arthroplasty down deep. 2. Polyethylene exchange. COMPONENTS INSERTED: A Crockett and Nephew size 9 for 5-6 tibial tray polyethylene articular insert. SPECIMENS SENT: 1. Superficial tissue for culture. 2. Deep tissue for culture. 3. Knee aspiration for culture and cell count. TOURNIQUET TIME: 60 minutes. ESTIMATED BLOOD LOSS: 50 mL. REASON FOR PROCEDURE: The patient is a very pleasant 75-year-old gentleman who underwent a total knee arthroplasty with me approximately 2 weeks ago. He had shown into my office with complaints of persistent drainage, small amount of serosanguineous drainage, from the inferior portion of his incision. Because of this, we had a discussion of risks, benefits, alternatives to the above surgery with him and he elected to proceed. DESCRIPTION OF PROCEDURE: The patient was greeted in the preoperative area by myself, correct extremity was marked and verified. He was taken to the operative suite and antibiotics were held until after all specimens were obtained intraoperatively. Once in the OR, he was transferred gently supine to the OR table and secured to the bed. All pressure points were padded. He had a successful induction of general anesthesia. We then placed our attachment for Neal leg bhatt at the foot of the bed and a large padded bump at his hip. A nonsterile tourniquet was taped in place to his right thigh. We then proceeded to prep and drape right lower extremity in our usual sterile fashion including an Ioban sandwich. I then used an 18-gauge needle and a 60 mL syringe to perform an aspiration, which yielded approximately 30 mL of a bloody fluid. This was sent off for cell count and culture. I then opened his incision through his prior incision with the scalpel. I used a hemostat to remove the suture debris. I then explored the subcutaneous tissue and noted a small amount of drainage from the inferior portion of the wound; more importantly he had approximately a 5 cm defect at his arthrotomy proximal to his patella. This communicated with the knee down deep. Therefore, I opened up his arthrotomy with a scalpel again and I removed all the suture debris. Prior to opening up his arthrotomy, I did use combination of curette, sharp excision, and a rongeur to debride the subcutaneous tissue. I then irrigated this out with approximately 1000 mL of sterile normal saline. Then, I continued on and opened up his arthrotomy and I used a curette and rongeur as well as a sharp excision to debride the suprapatellar pouch, medial and lateral gutters. After this, I took some of the tissue over the anterior aspect of his knee hardware and sent this for deep culture. The antibiotics were then started IV. After this, I removed the polyethylene articular insert with a blunt Hohmann with the knee in flexion. I then extended the knee and an financial legal assistant held longitudinal traction while I carried out the debridement of the posterior capsule. I then irrigated out his knee with the remainder of the 3000 mL sterile fluid bag. After this, I reinserted a 9 mm articular insert, as I was happy with his range of motion and stability with this in. I then proceeded to close the arthrotomy with a simple interrupted #1 PDS. Inverted interrupted 2-0 PDS was used for subcutaneous tissue and running 4-0 Monocryl was used for the skin. The leg was then cleansed and dried and RAMAN wound VAC was applied. The patient tolerated surgery well. Prior to completion of wound closure, all counts were reported correct x 2. No complications. At the conclusion of surgery, he was transferred gently supine to the hospital bed and taken to PACU in stable and extubated condition. Postop plan is to admit him to the joint center where he will begin rehabilitation. We will maintain him on Coumadin starting tonight. We will follow along with the wound cultures and if any of these tests are consistent with possible infection, we will ask Infectious Disease to see him. RAUL DOMINGO MD DR: DIVINA/vianca JOB#: [id number] / [id number] KEVIN
--- NOTE | 2016-04-23 12:24 | RAD ---
Indication: Post knee replacement. Technique: 2 views of the right knee are submitted for review. Comparison is from April 09, 2016. Findings: Right knee arthroplasty appears similarly positioned to prior study. There is no perihardware lucency. There is gas in the joint space and soft tissues and there is soft tissue swelling. On lateral view, there is questionable avulsion of a portion of the proximal posterior tibia, could also be related to slight obliquity of the lateral view compared to prior study and overlap of the proximal fibula. Attention to this area on follow-up exams would be of benefit. Impression: Right knee arthroplasty noted. Questionable avulsion fracture of the proximal tibia posteriorly.
[2016-04-23 13:21] LABS: BF CLARITY CLOUDY; BF COLOR RED
[2016-04-23] MEDS: SENNOSIDES/DOCUSATE 8.6/50MG TABLET. PO SCH (13:31)
[2016-04-23] MEDS: MULTIVITAMIN with MINERAL TABLET. PO SCH (13:31)
[2016-04-23] MEDS: OXYCODONE/APAP 7.5/325 TABLET. PO PRN ×3 (14:53→21:26)
[2016-04-23] MEDS ORDERED: WARFARIN 7.5 MG TABLET. PO ONE (16:00)
[2016-04-23] MEDS: FERROUS SULFATE 325 MG TABLET PO SCH (17:53)
[2016-04-23] MEDS: INSULIN ASPART 300 UNITS/3 ML INSULN.PEN SQ SCH (17:57)
[2016-04-23] MEDS: CELECOXIB 200 MG CAPSULE PO SCH (21:26)
[2016-04-23] MEDS ORDERED: INSULIN ASPART 300 UNITS/3 ML INSULN.PEN SQ ONE (22:00)
[2016-04-24] MEDS: OXYCODONE/APAP 7.5/325 TABLET. PO PRN ×2 (02:22→06:21)
[2016-04-24] MEDS: IV DEXTROSE 5 %-0.45 % NACL 1,000 ML IV SCH ×3 (03:30→23:30)
[2016-04-24 03:41] VITALS: BP 128/77
[2016-04-24] MEDS ORDERED: MAGNESIUM HYDROXIDE 2,400 MG/30 ML ORAL.SUSP. PO PRN (06:00)
[2016-04-24 06:50] LABS: HEMATOCRIT 40.6 % (39.0-53.0); HEMOGLOBIN 13.6 g/dL (13.0-17.5)
[2016-04-24 07:00] VITALS: BP 140/81
[2016-04-24 07:03] LABS: INR 1.1 (0.8-1.1); PROTHROMBIN TIME PATIENT 13.7 SEC (11.7-14.0)
[2016-04-24] MEDS: INSULIN ASPART 300 UNITS/3 ML INSULN.PEN SQ SCH ×4 (08:00→17:01)
[2016-04-24] MEDS ORDERED: DEXTROSE 50% 25 GM / 50ML DISP.SYRIN. IV PRN (08:15)
--- NOTE | 2016-04-24 09:59 | PDOC ---
ORTHO PROGRESS NOTES Subjective He tells me that his knee is hurting quite a bit. He is hoping for more help with pain medicine. He denies any chest pain, trouble breathing, trouble keeping food down. Vitals Vital Signs Date Time Temp Pulse Resp B/P Pulse Ox O2 Delivery O2 Flow Rate FiO2 04/24/16 07:24 20 95 BiPAP/CPAP 3.0 04/24/16 07:00 98.1 64 140/81 98.1 Labs Laboratory Tests Test 04/23/16 08:00 04/23/16 08:20 04/23/16 09:07 04/23/16 11:19 White Blood Count 8.2x10^3/uL (4.0-11.0) Red Blood Count 4.92x10^6/uL (4.30-5.70) Hemoglobin 14.4g/dL (13.0-17.5) Hematocrit 44.0% (39.0-53.0) Mean Corpuscular Volume 90fL (79-100) Mean Corpuscular Hemoglobin 29pg (25-35) Mean Corpuscular Hemoglobin Concent 33g/dL (31-37) Red Cell Distribution Width 14.9% (11.5-14.5) Platelet Count 251x10^3/uL (140-400) Neutrophils (%) (Auto) 70% (31-73) Lymphocytes (%) (Auto) 20% (24-48) Monocytes (%) (Auto) 7% (0-9) Eosinophils (%) (Auto) 3% (0-3) Basophils (%) (Auto) 1% (0-3) Neutrophils # (Auto) 5.8x10^3uL (1.8-7.7) Lymphocytes # (Auto) 1.6x10^3/uL (1.0-4.8) Monocytes # (Auto) 0.5x10^3/uL (0.0-1.1) Eosinophils # (Auto) 0.2x10^3/uL (0.0-0.7) Basophils # (Auto) 0.0x10^3/uL (0.0-0.2) Prothrombin Time 13.5SEC (11.7-14.0) Prothromb Time International Ratio 1.1 (0.8-1.1) Activated Partial Thromboplast Time 27SEC (24-38) Glucose (Fingerstick) 153mg/dL (70-99) 215mg/dL (70-99) Body Fluid Source Synovial Body Fluid Color Red Body Fluid Clarity Cloudy Body Fluid Nucleated Cells 32/cmm Body Fluid Mononuclear WBCs (%) 20% Body Fluid Polymorphonuclear Cells 80% Body Fluid Total RBCs Counted 574829/cmm Test 04/23/16 13:21 04/23/16 17:14 04/23/16 21:40 04/24/16 06:40 Glucose (Fingerstick) 205mg/dL (70-99) 238mg/dL (70-99) 285mg/dL (70-99) Hemoglobin 13.6g/dL (13.0-17.5) Hematocrit 40.6% (39.0-53.0) Mean Corpuscular Hemoglobin Concent 34g/dL (31-37) Prothrombin Time 13.7SEC (11.7-14.0) Prothromb Time International Ratio 1.1 (0.8-1.1) Test 04/24/16 07:49 Glucose (Fingerstick) 231mg/dL (70-99) Laboratory Tests Test 04/23/16 11:19 04/23/16 13:21 04/23/16 17:14 04/23/16 21:40 Glucose (Fingerstick) 215mg/dL (70-99) 205mg/dL (70-99) 238mg/dL (70-99) 285mg/dL (70-99) Test 04/24/16 06:40 04/24/16 07:49 Hemoglobin 13.6g/dL (13.0-17.5) Hematocrit 40.6% (39.0-53.0) Mean Corpuscular Hemoglobin Concent 34g/dL (31-37) Prothrombin Time 13.7SEC (11.7-14.0) Prothromb Time International Ratio 1.1 (0.8-1.1) Glucose (Fingerstick) 231mg/dL (70-99) X-Rays His postop x-rays were reviewed. I think that proximal posterior tibial abnormality was present on his postoperative x-rays at our last visit as well. I do not think he has a fracture. Notes He is awake and alert. Examination of his right lower extremity reveals some mild edema. He can wiggle his toes. Toes have good capillary refill. Not much effusion at his knee. The wound VAC is in place with a good seal. Not much drainage at all Assessment and Plan I would anticipate that he can probably be released tomorrow. He will need home health care. We will follow up on the wound cultures. All of the gram stains have not shown any organisms. Cultures still pending. TREASURE DOMINGO II, MD Apr 24, 2016 09:59
[2016-04-24] MEDS: SERTRALINE 50 MG TABLET. PO SCH ×2 (10:02→21:50)
[2016-04-24] MEDS: CHOLECALCIFEROL (VITAMIN D3) 1,000 UNIT TABLET PO SCH (10:02)
[2016-04-24] MEDS: CYANOCOBALAMIN (VITAMIN B-12) 1,000 MCG TABLET. PO SCH (10:02)
[2016-04-24] MEDS: SENNOSIDES/DOCUSATE 8.6/50MG TABLET. PO SCH (10:02)
[2016-04-24] MEDS: CELECOXIB 200 MG CAPSULE PO SCH ×2 (10:03→21:50)
[2016-04-24] MEDS: LISINOPRIL 10 MG TABLET PO SCH (10:03)
[2016-04-24] MEDS: FERROUS SULFATE 325 MG TABLET PO SCH ×2 (10:04→16:55)
[2016-04-24] MEDS: MULTIVITAMIN with MINERAL TABLET. PO SCH (10:04)
[2016-04-24] MEDS: OXYCODONE/APAP 10/325 TABLET. PO PRN ×4 (10:04→21:50)
[2016-04-24] MEDS: LEVOTHYROXINE 50 MCG TABLET PO SCH (10:04)
[2016-04-24] MEDS: IV RINGERS,LACTATED 1000ML 1,000 ML IV SCH (10:55)
[2016-04-24 11:20] VITALS: BP 138/74
[2016-04-24 15:17] VITALS: BP_SYST 128
[2016-04-24] MEDS ORDERED: WARFARIN 3 MG TABLET. PO ONE (16:00)
[2016-04-24] MEDS ORDERED: WARFARIN 6 MG TABLET. PO SCH (16:00)
[2016-04-24] MEDS ORDERED: BISACODYL 10 MG SUPP.RECT PR PRN (16:00)
[2016-04-24] MEDS: METFORMIN 1,000 MG TABLET PO SCH (16:54)
[2016-04-24 19:00] VITALS: BP 123/73
[2016-04-24] MEDS: SIMVASTATIN 40 MG TABLET. PO SCH (21:50)
[2016-04-24] MEDS: CLONAZEPAM 1 MG TABLET PO SCH (21:50)
[2016-04-24] MEDS: GABAPENTIN 300 MG CAPSULE. PO SCH (21:50)
[2016-04-24] MEDS: DONEPEZIL HCL 5 MG TABLET. PO SCH (21:50)
[2016-04-24] MEDS: INSULIN DETEMIR 300 UNITS/3 ML INSULN.PEN. SQ SCH (21:58)
[2016-04-24 23:00] VITALS: BP 117/78
[2016-04-25] MEDS: IV RINGERS,LACTATED 1000ML 1,000 ML IV SCH (00:15)
[2016-04-25 03:38] VITALS: BP 121/67
[2016-04-25] MEDS: LEVOTHYROXINE 50 MCG TABLET PO SCH (06:34)
[2016-04-25] MEDS: OXYCODONE/APAP 10/325 TABLET. PO PRN ×6 (06:34→22:02)
[2016-04-25 07:00] VITALS: BP 132/80
[2016-04-25 07:46] LABS: INR 1.2 (0.8-1.1); PROTHROMBIN TIME PATIENT 14.8 SEC (11.7-14.0)
--- NOTE | 2016-04-25 07:55 | PDOC ---
ORTHO PROGRESS NOTES Subjective Pain a little better, no other complaints Vitals Vital Signs Date Time Temp Pulse Resp B/P Pulse Ox O2 Delivery O2 Flow Rate FiO2 04/25/16 06:34 20 98 Room Air 04/25/16 03:38 97.7 67 121/67 97.7 04/24/16 22:50 3.0 Labs Laboratory Tests Test 04/23/16 08:00 04/23/16 08:20 04/23/16 09:07 04/23/16 11:19 White Blood Count 8.2x10^3/uL (4.0-11.0) Red Blood Count 4.92x10^6/uL (4.30-5.70) Hemoglobin 14.4g/dL (13.0-17.5) Hematocrit 44.0% (39.0-53.0) Mean Corpuscular Volume 90fL (79-100) Mean Corpuscular Hemoglobin 29pg (25-35) Mean Corpuscular Hemoglobin Concent 33g/dL (31-37) Red Cell Distribution Width 14.9% (11.5-14.5) Platelet Count 251x10^3/uL (140-400) Neutrophils (%) (Auto) 70% (31-73) Lymphocytes (%) (Auto) 20% (24-48) Monocytes (%) (Auto) 7% (0-9) Eosinophils (%) (Auto) 3% (0-3) Basophils (%) (Auto) 1% (0-3) Neutrophils # (Auto) 5.8x10^3uL (1.8-7.7) Lymphocytes # (Auto) 1.6x10^3/uL (1.0-4.8) Monocytes # (Auto) 0.5x10^3/uL (0.0-1.1) Eosinophils # (Auto) 0.2x10^3/uL (0.0-0.7) Basophils # (Auto) 0.0x10^3/uL (0.0-0.2) Prothrombin Time 13.5SEC (11.7-14.0) Prothromb Time International Ratio 1.1 (0.8-1.1) Activated Partial Thromboplast Time 27SEC (24-38) Glucose (Fingerstick) 153mg/dL (70-99) 215mg/dL (70-99) Body Fluid Source Synovial Body Fluid Color Red Body Fluid Clarity Cloudy Body Fluid Nucleated Cells 32/cmm Body Fluid Mononuclear WBCs (%) 20% Body Fluid Polymorphonuclear Cells 80% Body Fluid Total RBCs Counted 686284/cmm Test 04/23/16 13:21 04/23/16 17:14 04/23/16 21:40 04/24/16 06:40 Glucose (Fingerstick) 205mg/dL (70-99) 238mg/dL (70-99) 285mg/dL (70-99) Hemoglobin 13.6g/dL (13.0-17.5) Hematocrit 40.6% (39.0-53.0) Mean Corpuscular Hemoglobin Concent 34g/dL (31-37) Prothrombin Time 13.7SEC (11.7-14.0) Prothromb Time International Ratio 1.1 (0.8-1.1) Test 04/24/16 07:49 04/24/16 10:54 04/24/16 16:23 04/24/16 21:38 Glucose (Fingerstick) 231mg/dL (70-99) 276mg/dL (70-99) 161mg/dL (70-99) 221mg/dL (70-99) Test 04/25/16 07:09 04/25/16 07:20 Prothrombin Time 14.8SEC (11.7-14.0) Prothromb Time International Ratio 1.2 (0.8-1.1) Glucose (Fingerstick) 182mg/dL (70-99) Laboratory Tests Test 04/24/16 10:54 04/24/16 16:23 04/24/16 21:38 04/25/16 07:09 Glucose (Fingerstick) 276mg/dL (70-99) 161mg/dL (70-99) 221mg/dL (70-99) Prothrombin Time 14.8SEC (11.7-14.0) Prothromb Time International Ratio 1.2 (0.8-1.1) Test 04/25/16 07:20 Glucose (Fingerstick) 182mg/dL (70-99) Notes NGTD on Cx A and A RLE: vac in place, remains NVI Assessment and Plan awaiting placement, ok to transfer today if possible WBAT cont vac f/u on Cxs ABERLE,TREASURE S II MD Apr 25, 2016 07:55
[2016-04-25] MEDS: SERTRALINE 50 MG TABLET. PO SCH ×2 (09:17→22:01)
[2016-04-25] MEDS: CELECOXIB 200 MG CAPSULE PO SCH ×2 (09:17→22:01)
[2016-04-25] MEDS: CYANOCOBALAMIN (VITAMIN B-12) 1,000 MCG TABLET. PO SCH (09:17)
[2016-04-25] MEDS: MULTIVITAMIN with MINERAL TABLET. PO SCH (09:17)
[2016-04-25] MEDS: LISINOPRIL 10 MG TABLET PO SCH (09:17)
[2016-04-25] MEDS: FERROUS SULFATE 325 MG TABLET PO SCH ×2 (09:18→17:04)
[2016-04-25] MEDS: CHOLECALCIFEROL (VITAMIN D3) 1,000 UNIT TABLET PO SCH (09:18)
[2016-04-25] MEDS: METFORMIN 1,000 MG TABLET PO SCH ×2 (09:18→17:03)
[2016-04-25] MEDS: SENNOSIDES/DOCUSATE 8.6/50MG TABLET. PO SCH (09:18)
[2016-04-25] MEDS: INSULIN ASPART 300 UNITS/3 ML INSULN.PEN SQ SCH ×3 (09:28→17:10)
[2016-04-25 10:21] LABS: HEMOGLOBIN 13.5 g/dL (13.0-17.5)
[2016-04-25 11:00] VITALS: BP 128/75
[2016-04-25 15:00] VITALS: BP 108/62
[2016-04-25] MEDS ORDERED: WARFARIN 7.5 MG TABLET. PO ONE (16:00)
--- NOTE | 2016-04-25 16:53 | PDOC ---
ORTHO PROGRESS NOTES Vitals Vital Signs Date Time Temp Pulse Resp B/P Pulse Ox O2 Delivery O2 Flow Rate FiO2 04/25/16 15:00 98.4 70 18 108/62 92 Room Air 98.4 04/24/16 22:50 3.0 Labs Laboratory Tests Test 04/23/16 17:14 04/23/16 21:40 04/24/16 06:40 04/24/16 07:49 Glucose (Fingerstick) 238mg/dL (70-99) 285mg/dL (70-99) 231mg/dL (70-99) Hemoglobin 13.6g/dL (13.0-17.5) Hematocrit 40.6% (39.0-53.0) Mean Corpuscular Hemoglobin Concent 34g/dL (31-37) Prothrombin Time 13.7SEC (11.7-14.0) Prothromb Time International Ratio 1.1 (0.8-1.1) Test 04/24/16 10:54 04/24/16 16:23 04/24/16 21:38 04/25/16 07:09 Glucose (Fingerstick) 276mg/dL (70-99) 161mg/dL (70-99) 221mg/dL (70-99) Hemoglobin 13.5g/dL (13.0-17.5) Hematocrit 41.0% (39.0-53.0) Mean Corpuscular Hemoglobin Concent 33g/dL (31-37) Prothrombin Time 14.8SEC (11.7-14.0) Prothromb Time International Ratio 1.2 (0.8-1.1) Test 04/25/16 07:20 04/25/16 11:36 04/25/16 16:00 Glucose (Fingerstick) 182mg/dL (70-99) 173mg/dL (70-99) 178mg/dL (70-99) Laboratory Tests Test 04/24/16 21:38 04/25/16 07:09 04/25/16 07:20 04/25/16 11:36 Glucose (Fingerstick) 221mg/dL (70-99) 182mg/dL (70-99) 173mg/dL (70-99) Hemoglobin 13.5g/dL (13.0-17.5) Hematocrit 41.0% (39.0-53.0) Mean Corpuscular Hemoglobin Concent 33g/dL (31-37) Prothrombin Time 14.8SEC (11.7-14.0) Prothromb Time International Ratio 1.2 (0.8-1.1) Test 04/25/16 16:00 Glucose (Fingerstick) 178mg/dL (70-99) Assessment and Plan Cultures reviewed, d/w ID PICC TREASURE Lockhart II, MD Apr 25, 2016 16:53
[2016-04-25] MEDS ORDERED: VANCOMYCIN PER PHARMACY MC PRN (17:00)
[2016-04-25] MEDS ORDERED: VANCOMYCIN 1 GM in IV NORMAL SALINE 250ML 250 ML IV SCH (17:00)
[2016-04-25] MEDS ORDERED: VANCOMYCIN 2 GM in IV NORMAL SALINE 500ML BAG 500 ML IV ONE (17:30)
[2016-04-25 19:25] VITALS: BP 125/74
[2016-04-25 20:28] LABS: CREATININE 1.1 mg/dL (0.7-1.3); GFR 65.3
[2016-04-25] MEDS: SIMVASTATIN 40 MG TABLET. PO SCH (22:02)
[2016-04-25] MEDS: DONEPEZIL HCL 5 MG TABLET. PO SCH (22:02)
[2016-04-25] MEDS: CLONAZEPAM 1 MG TABLET PO SCH (22:02)
[2016-04-25] MEDS: GABAPENTIN 300 MG CAPSULE. PO SCH (22:03)
[2016-04-25] MEDS: INSULIN DETEMIR 300 UNITS/3 ML INSULN.PEN. SQ SCH (22:09)
[2016-04-25 23:25] VITALS: BP 125/75
[2016-04-26] MEDS: OXYCODONE/APAP 10/325 TABLET. PO PRN ×3 (03:26→13:13)
[2016-04-26 03:30] VITALS: BP 171/83
[2016-04-26] MEDS ORDERED: VANCOMYCIN 1.5 GM in IV NORMAL SALINE 500ML BAG 500 ML IV SCH (06:00)
[2016-04-26] MEDS: LEVOTHYROXINE 50 MCG TABLET PO SCH (06:10)
[2016-04-26 06:19] LABS: HEMATOCRIT 38.2 % (39.0-53.0); HEMOGLOBIN 12.5 g/dL (13.0-17.5)
[2016-04-26 07:00] VITALS: BP 119/80
--- NOTE | 2016-04-26 08:23 | DISCH ---
DISCHARGE INSTRUCTIONS Condition on Discharge Condition on Discharge: Stable Activity After Discharge Activity Instructions for Disc: Activity as tolerated Bathing Instructions: Shower-keep dressing dry Weight Bearing Status after Di: As tolerated Diet after Discharge Diet after Discharge: Regular Wound Incision Care Wound/Incision Care: Ice to area for comfort, Keep wound/cast CDI, Do not change dressing Contacting the [facility] after DC Call your doctor for: Concerns you may have Follow-Up Follow up with: Arie in 2wks TREASURE ODMINGO II, MD Apr 26, 2016 08:23
--- NOTE | 2016-04-26 08:24 | PDOC ---
ORTHO PROGRESS NOTES Subjective Pain tolerable. No complaints Vitals Vital Signs Date Time Temp Pulse Resp B/P Pulse Ox O2 Delivery O2 Flow Rate FiO2 04/26/16 07:00 98.2 73 18 119/80 94 Room Air 98.2 Labs Laboratory Tests Test 04/24/16 10:54 04/24/16 16:23 04/24/16 21:38 04/25/16 07:09 Glucose (Fingerstick) 276mg/dL (70-99) 161mg/dL (70-99) 221mg/dL (70-99) Hemoglobin 13.5g/dL (13.0-17.5) Hematocrit 41.0% (39.0-53.0) Mean Corpuscular Hemoglobin Concent 33g/dL (31-37) Prothrombin Time 14.8SEC (11.7-14.0) Prothromb Time International Ratio 1.2 (0.8-1.1) Creatinine 1.1mg/dL (0.7-1.3) Estimated GFR (Cockcroft-Gault) 65.3 Test 04/25/16 07:20 04/25/16 11:36 04/25/16 16:00 04/25/16 21:31 Glucose (Fingerstick) 182mg/dL (70-99) 173mg/dL (70-99) 178mg/dL (70-99) 182mg/dL (70-99) Test 04/26/16 06:06 04/26/16 07:56 Hemoglobin 12.5g/dL (13.0-17.5) Hematocrit 38.2% (39.0-53.0) Mean Corpuscular Hemoglobin Concent 33g/dL (31-37) Glucose (Fingerstick) 268mg/dL (70-99) Laboratory Tests Test 04/25/16 11:36 04/25/16 16:00 04/25/16 21:31 04/26/16 06:06 Glucose (Fingerstick) 173mg/dL (70-99) 178mg/dL (70-99) 182mg/dL (70-99) Hemoglobin 12.5g/dL (13.0-17.5) Hematocrit 38.2% (39.0-53.0) Mean Corpuscular Hemoglobin Concent 33g/dL (31-37) Test 04/26/16 07:56 Glucose (Fingerstick) 268mg/dL (70-99) Notes Cxs - Staph A and A vac in place with good seal remains NVI RLE Assessment and Plan PICC this am IV frank pastor/w Dr. Quang little to transfer today TREASURE DOMINGO II, MD Apr 26, 2016 08:24
[2016-04-26] MEDS: SERTRALINE 50 MG TABLET. PO SCH (08:36)
[2016-04-26] MEDS: CHOLECALCIFEROL (VITAMIN D3) 1,000 UNIT TABLET PO SCH (08:36)
[2016-04-26] MEDS: METFORMIN 1,000 MG TABLET PO SCH (08:36)
[2016-04-26] MEDS: SENNOSIDES/DOCUSATE 8.6/50MG TABLET. PO SCH (08:36)
[2016-04-26] MEDS: FERROUS SULFATE 325 MG TABLET PO SCH (08:36)
[2016-04-26] MEDS: CYANOCOBALAMIN (VITAMIN B-12) 1,000 MCG TABLET. PO SCH (08:36)
[2016-04-26] MEDS: CELECOXIB 200 MG CAPSULE PO SCH (08:36)
[2016-04-26] MEDS: LISINOPRIL 10 MG TABLET PO SCH (08:37)
[2016-04-26] MEDS: MULTIVITAMIN with MINERAL TABLET. PO SCH (08:37)
[2016-04-26] MEDS: INSULIN ASPART 300 UNITS/3 ML INSULN.PEN SQ SCH ×2 (08:46→12:00)
--- NOTE | 2016-04-26 09:01 | PDOC ---
Infectious Disease Note ROS ROS GEN: Denies fevers, chills, sweats HEENT: Denies blurred vision, sore throat CV: Denies chest pain RESP: Denies shortness of air, cough GI: Denies n/v/d NEURO: Denies confusion, dizziness MSK: Denies weakness, joint pain/swelling Vital Sign Vital Signs Vital Signs Date Time Temp Pulse Resp B/P Pulse Ox O2 Delivery O2 Flow Rate FiO2 04/26/16 07:00 98.2 73 18 119/80 94 Room Air 98.2 Physical Exam PHYSICAL EXAM GENERAL: NAD, Alert HEENT: PERRL, OC/OP NECK: Supple, no JVD, no LN LUNGS: Clear HEART: S1S2, no gallop, no murmur ABD: Soft, NT, no organomegaly, no rebound EXT: No edema, no cyanosis CALL CENTER SUPERVISOR: Alert, oriented x 3, no focal neurologic deficit SKIN: No rash IV: ok Labs Lab Laboratory Tests Test 04/25/16 11:36 04/25/16 16:00 04/25/16 21:31 04/26/16 06:06 Glucose (Fingerstick) 173mg/dL (70-99) 178mg/dL (70-99) 182mg/dL (70-99) Hemoglobin 12.5g/dL (13.0-17.5) Hematocrit 38.2% (39.0-53.0) Mean Corpuscular Hemoglobin Concent 33g/dL (31-37) Test 04/26/16 07:56 Glucose (Fingerstick) 268mg/dL (70-99) Objective Assessment ? R TKA infection STCN DM CKD Plan Plan of Care Vanc to 1 gm q 12 for 6 weeks PICC Sed rate Labs Q Saturday CBC/Sed rate/Cr/Vanc trough fax t [phone] F/u ID office 2 weeks [phone] To Hernandez Shirley D/w Ata D/w # [id number] RADHA TOUSSAINT MD Apr 26, 2016 09:00
[2016-04-26] MEDS ORDERED: VANCOMYCIN PER PHARMACY MC PRN (09:15)
[2016-04-26 09:56] LABS: INR 3.8 (0.8-1.1); PROTHROMBIN TIME PATIENT 35.1 SEC (11.7-14.0)
[2016-04-26 11:08] VITALS: BP 125/71
[2016-04-26] MEDS ORDERED: VANCOMYCIN 1 GM in IV NORMAL SALINE 250ML 250 ML IV SCH (18:00)
--- NOTE | 2016-04-26 21:46 | CONS ---
DATE OF CONSULTATION: 04/26/2016 ROOM: 444. REQUESTING PHYSICIAN: Dr. Sargent. REASON FOR CONSULTATION: Total knee infection. HISTORY OF PRESENT ILLNESS: The patient is a pleasant 75-year-old gentleman with history of diabetes for over 10 years and had complications with right knee osteoarthritis, underwent a right total knee arthroplasty on 04/09/2016. At the time of discharge, states that the wound was draining. They went home on . Dressing was changed on Saturday. She noticed on Saturday that he had some mild drainage associated with it, but she was following instructions not to change the dressing. Home health came on Saturday, removed the dressing, and the wound had looked overly saturated. The Steri-Strips did come off, and there were 2 areas that were draining, she states a yellow orangey fluid. There was no pus. There was no excessive redness, but there was some swelling. Postoperatively, the patient continued to improve with regards to his physical therapy, was doing stairs, was not having any increasing pain associated with it. He followed with Dr. Sargent. He continued to have drainage, so he was taken to the operating room on 04/23/2016, underwent I and D and a poly exchange. At that time, three separate cultures were obtained including a knee aspiration. Only one of the cultures was showing a coag-negative staph at this point. The knee aspirate fluid only had 32 white blood cells, although had 425,000 reds. I was contacted yesterday by Dr. Sargent with concerns for possible infection with the coag-negative staph, recommended institution of vancomycin as well as placement of a PICC line. Currently, the patient is sitting in a chair. He is eating breakfast. He states he is feeling fairly well. He was not on any antimicrobials prior to coming to the hospital. He did not have any fevers or chills or sweats or weight loss prior to coming to the hospital. He does have chronic back pain. He states this has actually improved since his surgery because his knee caused him to bend to the right. Currently, no headaches, no sinus issues, sore throat or cough. No nausea or vomiting. No chest pain. He is a little constipated. No complications passing his urine. PAST MEDICAL HISTORY: Positive for the above-mentioned diabetes, history of obesity, anxiety, ____, degenerative joint disease, neuropathy, hypertension, hyperlipidemia, depression, chronic back pain, history of melanoma, and hypothyroidism. PAST SURGICAL HISTORY: Positive for the above-mentioned knee procedures. He has also had bilateral cataract surgery and melanoma excisions. REVIEW OF SYSTEMS: Otherwise negative except as mentioned above. ALLERGIES: No known drug allergies. SOCIAL HISTORY: He is retired. He is . His is currently with him. No tobacco or alcohol. FAMILY HISTORY: Positive for diabetes. CURRENT MEDICATIONS: Include vancomycin 1.5 grams IV q. 12. He was on cefazolin preoperatively. Tums, Celebrex, vitamin D3, Klonopin, Aricept, Neurontin, insulin, Synthroid, Zoloft. Other meds are available and have been reviewed in the chart. PHYSICAL EXAMINATION: VITAL SIGNS: He has been afebrile, temperature 98.2, pulse 73, respirations 18, blood pressure 119/80, satting 94% on room air. CONSTITUTIONAL: He is very pleasant. He is cooperative, in no acute distress. He is sitting in a chair. HEENT: Pupils are equal and reactive. He is status post cataract surgery. Normal conjunctivae. Oral cavity, pharynx is clear. NECK: Supple, no JVD. LUNGS: Clear to auscultation bilaterally. HEART: S1, S2. ABDOMEN: Protuberant, soft, nontender, nondistended, mildly obese. Decreased bowel sounds. EXTREMITIES: Without clubbing or cyanosis. He has trace edema. His right knee is dressed, has a superficial wound VAC in place. There is trace edema. SKIN: Warm to touch without signs of generalized rash. NEUROLOGIC: He is nonfocal, appropriate. PSYCHIATRIC: Affect is pleasant. LABORATORY DATA: White count was 8.2 at the time of presentation. Hemoglobin today is 12.5, hematocrit is 38.2, platelets were 251 with a normal differential. Most recent creatinine is 1.1. Today's glucose fingerstick is 268. Synovial fluid was reviewed in history of present illness. Cultures reviewed in history of present illness. IMPRESSION: 1. Questionable right total knee infection. 2. Coagulase-negative Staphylococcus. 3. Diabetes. 4. Chronic kidney disease. RECOMMENDATIONS: Adjust vancomycin to a gram q. 12. A PICC line has been ordered. We will obtain the sedimentation rate and have home health arrange antibiotics. Thank you for allowing us to participate in the patient's care. If you have any questions, please do not hesitate to contact me. This was discussed with his . RADHA TOUSSAINT MD DR: GREER/vianca JOB#: [id number] / [id number]
--- NOTE | 2016-06-05 08:56 | PDOC3 ---
Discharge Summary Visit Information Date of Admission: Apr 23, 2016 Date of Discharge: Apr 26, 2016 Admitting Diagnosis: persistent drainage right total knee arthroplasty Final Diagnosis Problems Medical Problems: (1) Open knee wound Status: Acute (2) Postoperative wound dehiscence Status: Acute Brief Hospital Course Allergies Allergies Coded Allergies Type Severity Reaction Last Updated Verified No Known Drug Allergies 04/23/16 No Brief Hospital Course Mr. Nguyen is a 75 old male who had seen back in my clinic after he underwent a right total knee arthroplasty. He developed persistent drainage and because of this I discussed with him proceeding to the operating room for an I&D and polyethylene exchange. He is agreeable to this. He tolerated surgery well and recovered well from anesthesia and the PACU. He was taken to the joint center for DVT and antibiotic prophylaxis. Cultures were obtained intraoperatively. Infectious disease was consulted. He recovered well and his hospital course was essentially uneventful. His pain was controlled on oral pain medicine and he was able to get up and move around, although he was having difficulties with his activities daily living and therefore required placement. Antibiotics were continued throughout his hospital stay as selected by infectious disease. He remained hemodynamically stable and afebrile throughout his hospitalization. Discharge Information Condition at Discharge: Stable Follow Up: Weeks Disposition/Orders: D/C to Another Facility Scheduled Cholecalciferol (Vitamin D3) (Vitamin D3) 2,000 UNIT PO DAILY (Reported) Clonazepam (Clonazepam) 1 MG PO HS (Reported) Donepezil Hcl (Donepezil Hcl) 5 MG PO HS (Reported) Gabapentin (Gabapentin) 300 MG PO HS (Reported) Insulin Glargine,Hum.rec.anlog (Lantus) 15 UNIT SQ HS (Reported) Levothyroxine Sodium (Levothyroxine Sodium) 50 MCG PO DAILYAC (Reported) Lisinopril (Lisinopril) 1 TAB PO DAILY (Reported) Metformin Hcl (Metformin Hcl) 1,000 MG PO BID (Reported) Sertraline Hcl (Sertraline Hcl) 100 MG PO BID (Reported) Simvastatin (Simvastatin) 40 MG PO HS (Reported) Warfarin Sodium (Coumadin) 6 MG PO DAILY (Reported) Scheduled PRN Acyclovir (Acyclovir) 1 TAB PO PRN BID PRN PRN SEE COMMENTS (Reported) Albuterol Sulfate (Proair Hfa Inhaler) 2 PUFF INH PRN Q6HRS PRN PRN SHORTNESS OF BREATH (Reported) Miscellaneous Medications Cyanocobalamin (Vitamin B-12) (B-12) 1,000 MCG PO (Reported) Patient Instructions Patient Instructions He is be discharged on vancomycin IV. He will follow up with infectious disease. He will follow up with myself in 1 week's time. Worrisome signs and symptoms were discussed with the patient. He is weightbearing as tolerated. TREASURE DOMINGO II, MD Jun 05, 2016 08:56
== END 2016-04-26 14:10 | DRG 467 ==
LOC: OPSVCIP 07:23 → 4 NORTH 12:45
PROVIDERS: ADMIT Orthopaedic Surgery Sports Medicine; ATTEND Orthopaedic Surgery Sports Medicine
PROC: 02HV33Z Insertion of Infusion Device into Superior Vena Cava, Percutaneous Approach (ICD-10-PCS; 2016-04-23)
PROC: 4A02X4A Measurement of Cardiac Electrical Activity, Guidance, External Approach (ICD-10-PCS; 2016-04-23)
PROC: 0SBC0ZZ Excision of Right Knee Joint, Open Approach (ICD-10-PCS; 2016-04-23)
PROC: 0S9C3ZX Drainage of Right Knee Joint, Percutaneous Approach, Diagnostic (ICD-10-PCS; 2016-04-23)
PROC: 0SWC0JZ Revision of Synthetic Substitute in Right Knee Joint, Open Approach (ICD-10-PCS; principal; 2016-04-23 08:45)
DX: T84.89XA Other specified complication of internal orthopedic prosthetic devices, implants and grafts, initial encounter (principal); D62 Acute posthemorrhagic anemia; E03.9 Hypothyroidism, unspecified; E11.22 Type 2 diabetes mellitus with diabetic chronic kidney disease; E11.40 Type 2 diabetes mellitus with diabetic neuropathy, unspecified; E78.5 Hyperlipidemia, unspecified; I12.9 Hypertensive chronic kidney disease with stage 1 through stage 4 chronic kidney disease, or unspecified chronic kidney disease; K59.00 Constipation, unspecified; M17.11 Unilateral primary osteoarthritis, right knee; N18.9 Chronic kidney disease, unspecified; G89.29 Other chronic pain; E66.9 Obesity, unspecified; F32.9 Major depressive disorder, single episode, unspecified; Z96.651 Presence of right artificial knee joint; F41.9 Anxiety disorder, unspecified; M54.9 Dorsalgia, unspecified; Z83.3 Family history of diabetes mellitus; Z85.820 Personal history of malignant melanoma of skin; Z68.35 Body mass index [BMI] 35.0-35.9, adult
CPT/HCPCS: 36415; 73560; 82565; 82947; 85014; 85018; 85027; 85610; 85651; 85730; 86850; 86900; 86901; 87071; 87075; 87205; 89050; J0171; J0690; J1815; J1885; J2270; J2405; J2704; J2710; J2795; J3010; J3370; J3490; J7040; J7050; J7120; S0028; 97110; 97116; 97535; C1769; J7030